=== PATIENT | female | born 1990 | race American Indian/Alaskan Native ===

== ENCOUNTER 2017-09-25 00:13 | Emergency (ER) | payer MEDICAID ==
[2017-09-25] MEDS ORDERED: ASPIRIN PO ONE (00:23)
[2017-09-25 00:44] LABS: Basophils # (Auto) 0.1 K/mm3 (0.0-0.1); Eosinophils % (Auto) 1.3 % (0.0-4.3); Monocytes # (Auto) 0.7 K/mm3 (0.0-0.8); Monocytes % (Auto) 7.6 % (0.0-7.3)
[2017-09-25 00:48] LABS: BUN/Creatinine Ratio 18; Blood Urea Nitrogen 9 mg/dL (7-17); Calcium 8.8 mg/dL (8.4-10.2); Hemolysis Index 9
[2017-09-25 00:51] LABS: Hematocrit 43.3 % (30.3-42.9); Hemoglobin 14.4 gm/dl (10.1-14.3); Red Blood Count 4.64 M/mm3 (3.65-5.03)
[2017-09-25 00:52] LABS: Basophils % (Auto) 0.6 % (0.0-1.8); Eosinophils # (Auto) 0.1 K/mm3 (0.0-0.4); Lymphocytes % (Auto) 32.1 % (13.4-35.0); Mean Corpuscular HGB Conc 33 % (30-34); Mean Corpuscular Hemoglobin 31 pg (28-32); Mean Corpuscular Volume 93 fl (79-97); Mean Platelet Volume 9.4 fl (6-12); Platelet Count 234 K/mm3 (140-440); Red Cell Distribution Width 13.5 % (13.2-15.2)
--- NOTE | 2017-09-25 06:30 | Emergency Department Report ---
ED Chest Pain HPI - General Chief Complaint: Chest Pain Stated Complaint: CHEST PAIN Time Seen by Provider: 09/25/17 06:20 Source: patient Mode of arrival: Ambulatory Limitations: No Limitations - History of Present Illness Initial Comments: Patient is a 26-year-old female presents emergency room with complaints of chest pain in her left upper chest that started at 11 PM of the day prior. Patient states that the chest pain is was 6 out of 10 and intermittent and is nonradiating. Patient states she is experiencing minimal chest pain at this time. Patient denies shortness of breath and fever. Patient denies chills. Patient denies diaphoresis. Patient states that she recently had a large spicy meal. Patient states that she is having a lot of burping which relieves the pain. Patient states the pain is better with resting with head of bed slightly elevated. Patient states the pain is worse with lying flat or on her left side. Patient describes the pain as a burning or dullness. MD Complaint: chest pain -: Sudden Onset: during rest Pain Location: left chest Pain Radiation: none Severity scale (0 -10): 6 Improves With: rest (sitting upright. ) Worsens With: supine (worse with lying flat or on left side. ) re: denies: nausea, vomting, diaphoresis, dyspnea, sense of impending doom Other Symptoms: denies: cough, fever, syncope, rash, acid taste in mouth, leg swelling, palpitations, burping Treatments Prior to Arrival: none - Related Data On Oral Contraceptives: No Previous Rx's Medication Instructions Recorded Last Taken Type Esomeprazole Magnesium [NexIUM 40 mg PO DAILY 30 Days #30 09/25/17 Unknown Rx 24Hr] capsule. Allergies Allergy/AdvReac Type Severity Reaction Status Date / Time No Known Allergies Allergy Unverified 09/25/17 00:18 Heart Score - HEART Score History: Slightly suspicious EKG: Normal Age: < 45 Risk factors: No known risk factors Troponin: < normal limit HEART Score: 0 ED Review of Systems ROS: Stated complaint: CHEST PAIN Other details as noted in HPI Comment: All other systems reviewed and negative Constitutional: denies: chills, fever Eyes: denies: eye pain, eye discharge, vision change ENT: denies: ear pain, throat pain Respiratory: denies: cough, shortness of breath, wheezing Cardiovascular: chest pain. denies: palpitations Endocrine: no symptoms reported Gastrointestinal: denies: abdominal pain, nausea, diarrhea Genitourinary: denies: urgency, dysuria, discharge Musculoskeletal: denies: back pain, joint swelling, arthralgia Skin: denies: rash, lesions Neurological: denies: headache, weakness, paresthesias Psychiatric: denies: anxiety, depression Hematological/Lymphatic: denies: easy bleeding, easy bruising ED Past Medical Hx - Past Medical History Previous Medical History?: No - Surgical History Past Surgical History?: Yes Additional Surgical History: tubaligation - Family History Family history: hypertension - Social History Smoking Status: Former Smoker Substance Use Type: Alcohol, Marijuana - Medications Home Medications: Home Medications Medication Instructions Recorded Confirmed Last Taken Type Esomeprazole Magnesium [NexIUM 40 mg PO DAILY 30 Days #30 09/25/17 Unknown Rx 24Hr] capsule. ED Physical Exam - General Limitations: No Limitations General appearance: alert, in no apparent distress - Head Head exam: Present: atraumatic, normocephalic - Eye Eye exam: Present: normal appearance - ENT ENT exam: Present: mucous membranes moist - Neck Neck exam: Present: normal inspection - Respiratory Respiratory exam: Present: normal lung sounds bilaterally. Absent: respiratory distress - Cardiovascular Cardiovascular Exam: Present: regular rate, normal rhythm. Absent: systolic murmur, diastolic murmur, rubs, gallop - GI/Abdominal GI/Abdominal exam: Present: soft, normal bowel sounds - Extremities Exam Extremities exam: Present: normal inspection - Back Exam Back exam: Present: normal inspection - Neurological Exam Neurological exam: Present: alert, oriented X3 - Psychiatric Psychiatric exam: Present: normal affect, normal mood - Skin Skin exam: Present: warm, dry, intact, normal color. Absent: rash ED Course Vital Signs 09/25/17 09/25/17 09/25/17 00:14 05:02 05:09 Temperature 99.4 F Pulse Rate 79 72 Respiratory 16 17 16 Rate Blood Pressure 127/86 Blood Pressure [Left] O2 Sat by Pulse 98 99 Oximetry 09/25/17 09/25/17 09/25/17 05:16 05:30 05:46 Temperature Pulse Rate 71 69 68 Respiratory 20 19 14 Rate Blood Pressure 116/68 121/75 116/68 Blood Pressure [Left] O2 Sat by Pulse 100 100 100 Oximetry 09/25/17 09/25/17 09/25/17 06:00 06:16 06:30 Temperature Pulse Rate 74 87 71 Respiratory 19 17 9 L Rate Blood Pressure 121/75 121/67 Blood Pressure [Left] O2 Sat by Pulse 99 100 Oximetry 09/25/17 09/25/17 09/25/17 06:46 07:00 07:16 Temperature Pulse Rate 73 72 77 Respiratory 20 21 17 Rate Blood Pressure 121/67 117/74 117/74 Blood Pressure [Left] O2 Sat by Pulse 100 99 100 Oximetry 09/25/17 09/25/17 09/25/17 07:30 07:46 08:00 Temperature Pulse Rate 74 77 75 Respiratory 20 19 22 Rate Blood Pressure 111/71 111/71 101/66 Blood Pressure [Left] O2 Sat by Pulse 100 99 Oximetry 09/25/17 09/25/17 09/25/17 08:16 08:30 08:46 Temperature Pulse Rate 79 74 78 Respiratory 18 19 13 Rate Blood Pressure 101/66 117/70 117/70 Blood Pressure [Left] O2 Sat by Pulse 99 100 100 Oximetry 09/25/17 09/25/17 09/25/17 09:00 09:16 09:30 Temperature Pulse Rate 86 83 116 H Respiratory 18 15 24 Rate Blood Pressure 115/77 115/77 126/89 Blood Pressure [Left] O2 Sat by Pulse 100 100 99 Oximetry 09/25/17 09/25/17 09:46 09:55 Temperature Pulse Rate 98 H 98 H Respiratory 15 16 Rate Blood Pressure 126/89 Blood Pressure 126/89 [Left] O2 Sat by Pulse 100 100 Oximetry - Reevaluation(s) Reevaluation #1: Patient denies chest pain at this time. Patient tolerated by mouth intake. We will give patient GI cocktail and discharge patient home 09/25/17 09:23 IDA score - Ida Score Age > 65: (0) No Aspirin use within the Past 7 Days: (0) No 3 or more CAD Risk Factors: (0) No 2 or more Angina events in past 24 hrs: (0) No Known CAD with more than 50% Stenosis: (0) No Elevated Cardiac Markers: (0) No ST Deviation Greater than 0.5mm: (0) No IDA Score: 0 ED Medical Decision Making - Lab Data Result diagrams: 09/25/17 00:25 09/25/17 00:25 - EKG Data -: EKG Interpreted by Me EKG shows normal: sinus rhythm, axis, intervals, QRS complexes, ST-T waves Rate: normal - EKG Data Interpretation: normal EKG - Radiology Data Radiology results: report reviewed, image reviewed interpreted by me: cxr nad Acute findings on chest x-ray - Medical Decision Making She is 26-year-old female presents to [facility] with chest pains and reflux-like symptoms. Patient has improved with treatment and has no chest pain at time of discharge. Patient had 2 negative enzymes and EKGs. Patient discharged home with GERD treatment. - Differential Diagnosis chest pain. GERD. Gastritis. Gastroenteritis. Critical care attestation.: If time is entered above; I have spent that time in minutes in the direct care of this critically ill patient, excluding procedure time. ED Disposition Clinical Impression: Chest pain, Gastritis Disposition: - TO HOME OR SELFCARE Is pt being admited?: No Does the pt Need Aspirin: No Condition: Stable Instructions: Chest Pain (ED), Gastritis (ED) Additional Instructions: Patient to follow up with primary care in 3-5 days. 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 Patient to take Tylenol when necessary for pain. Patient to return to ER if condition worsens. Patient eat a GERD diet. Patient to increase water. Prescriptions: Esomeprazole Magnesium [NexIUM 24Hr] 40 mg PO DAILY 30 Days #30 capsule. Referrals: AUBREY BAIRES MD [Primary Care Provider] - 3-5 Days Time of Disposition: 09:26
--- NOTE | 2017-09-25 07:59 | XRay Report ---
FINAL REPORT EXAM: XR CHEST 1V AP HISTORY: cp TECHNIQUE: A portable upright view of the chest was submitted. FINDINGS: The heart size and mediastinum appear normal. The lungs are clear. Pleural fluid is not seen. There is no evidence of congestion. The skeletal structures reveal a levoscoliosis of the thoracic spine. IMPRESSION: No active chest disease.
[2017-09-25] MEDS ORDERED: ALUM-MAG HYDROX-SIMETH 200-200-20MG/5ML PO ONE (09:21)
[2017-09-25 09:55] VITALS: BP 126/89
== END 2017-09-25 09:56 | disposition home or self-care (01) ==
LOC: ED 00:13
DX: K29.70 Gastritis, unspecified, without bleeding (principal); F12.10 Cannabis abuse, uncomplicated; Z98.51 Tubal ligation status
CPT/HCPCS: 36415; 71045; 80048; 84484; 84703; 85025; 93005; 93010